=== PATIENT | male | born 1960 | race Caucasian/White ===

== ENCOUNTER 2016-12-21 16:48 | Observation (INO) | payer MEDICAID ==
[~2016-12-21] VITALS: Ht 180.3 cm; Wt 75.7 kg
[2016-12-21] MEDS ORDERED: ASPIRIN 81 MG CHEW TAB ONE (16:54)
[2016-12-21] MEDS ORDERED: DUONEB INH ONE (17:48)
[2016-12-21] MEDS ORDERED: NITROGLYCERIN SL 0.4 MG TAB SL ONE (17:49)
[2016-12-21] MEDS ORDERED: DILAUDID 1 MG/ML AMP ONE (18:01)
[2016-12-21] MEDS ORDERED: ONDANSETRON 4 MG VIAL ONE (18:01)
[2016-12-21] MEDS ORDERED: NITROGLYCERIN 2% OINT 1 INCH PKT TOPICAL ONE (18:01)
[2016-12-21] MEDS ORDERED: TRAMADOL 50 MG TAB PO PRN (18:45)
[2016-12-21] MEDS ORDERED: NITROGLYCERIN 50 MG/250 ML IV PRN (18:45)
[2016-12-21] MEDS ORDERED: ACETAMINOPHEN 325 MG TAB PO PRN (18:45)
[2016-12-21] MEDS ORDERED: SALINE FLUSH 10 ML FLUSH PRN (18:45)
[2016-12-21] MEDS ORDERED: ASPIRIN 81 MG CHEW TAB PO ONE (18:45)
[2016-12-21] MEDS ORDERED: DOCUSATE SOD 100 MG CAP PO PRN (18:45)
[2016-12-21] MEDS ORDERED: ONDANSETRON 4 MG VIAL IV PRN (18:45)
[2016-12-21] MEDS ORDERED: TEMAZEPAM 15 MG CAP PO PRN (18:45)
[2016-12-21] MEDS ORDERED: NITROGLYCERIN SL 0.4 MG TAB SL PRN (18:45)
[2016-12-21] MEDS ORDERED: SODIUM CHLORIDE 0.9% FLUSH BAG 500 ML IV PRN (18:45)
[2016-12-21 19:46] VITALS: BP_SYST 106; RESP 18; TEMP 97.4
[2016-12-21] MEDS: MORPHINE 2 MG/ML SYR IV PRN (19:56)
[2016-12-21] MEDS ORDERED: NEB-ALBUTEROL 2.5 MG/3 ML INH PRN (20:00)
[2016-12-21] MEDS ORDERED: ACETAMIN/BUTALB/CAFF PO PRN (20:00)
[2016-12-21] MEDS ORDERED: Atorvastatin 40 MG TAB PO SCH (21:00)
[2016-12-21] MEDS ORDERED: ZOLPIDEM 5 MG TAB PO SCH (21:00)
[2016-12-21] MEDS: SALINE FLUSH 10 ML FLUSH SCH (21:50)
[2016-12-21] MEDS: LORAZEPAM 0.5 MG TAB PO PRN (21:50)
[2016-12-21] MEDS: FLUTICASONE 0.05% NA BTL NARE EACH SCH (21:50)
[2016-12-21] MEDS: GABAPENTIN 400 MG CAP PO SCH (21:52)
[2016-12-21 23:02] VITALS: BP_SYST 111; RESP 18
[2016-12-22] VITALS (12 sets, daily range): BP systolic 108–132; RESP 12–20; TEMP 97.3–98; Ht 180.3 cm; Wt 75.7 kg
[2016-12-22] MEDS: DUONEB INH PRN ×4 (00:22→10:49)
[2016-12-22] MEDS: Hydrocodone/APAP 10/325 MG TAB PO PRN ×3 (02:09→14:34)
[2016-12-22] MEDS: MORPHINE 2 MG/ML SYR IV PRN ×4 (02:38→08:36)
[2016-12-22] MEDS: LORAZEPAM 0.5 MG TAB PO PRN (04:44)
[2016-12-22] MEDS ORDERED: MDI-SPIRIVA 5 DOSES INH SCH (07:00)
[2016-12-22] MEDS ORDERED: DIAZEPAM 5 MG TAB PO ONE (07:40)
[2016-12-22] MEDS ORDERED: ASPIRIN EC 81 MG TAB PO SCH (08:00)
[2016-12-22] MEDS: GABAPENTIN 400 MG CAP PO SCH ×2 (08:35→13:15)
[2016-12-22] MEDS: FLUTICASONE 0.05% NA BTL NARE EACH SCH (08:35)
[2016-12-22] MEDS: SALINE FLUSH 10 ML FLUSH SCH (08:36)
[2016-12-22] MEDS ORDERED: ATENOLOL 25 MG TAB PO SCH (09:00)
[2016-12-22] MEDS ORDERED: DULoxetine 30 MG CAP PO SCH (09:00)
[2016-12-22] MEDS ORDERED: MORPHINE 2 MG/ML SYR IV ONE (09:45)
[2016-12-22] MEDS ORDERED: ONDANSETRON 4 MG VIAL IV PRN (09:45)
[2016-12-22] MEDS ORDERED: LIDOCAINE 2% 20 ML SUBQ ONE (09:45)
[2016-12-22] MEDS ORDERED: MIDAZOLAM 2 MG/2 ML INJ IV PRN (09:45)
[2016-12-22] MEDS ORDERED: ATROPINE 1 MG/10 ML SYRINGE IV PRN (09:45)
[2016-12-22] MEDS ORDERED: SALINE FLUSH 10 ML FLUSH PRN (09:45)
[2016-12-22] MEDS ORDERED: DEXTROSE 5% SALINE 0.45% 1,000 ML IV SCH (09:45)
[2016-12-22] MEDS ORDERED: MIDAZOLAM 2 MG/2 ML INJ IV ONE (09:45)
[2016-12-22] MEDS ORDERED: LORAZEPAM 0.5 MG TAB PO PRN (10:45)
[2016-12-22] MEDS ORDERED: FAMOTIDINE 20 MG INJ IV ONE (10:50)
[2016-12-22] MEDS ORDERED: KETOROLAC 30 MG/ML VIAL IV ONE (10:50)
[2016-12-22] MEDS ORDERED: SALINE FLUSH 10 ML FLUSH SCH (20:00)
[2016-12-22] MEDS ORDERED: FAMOTIDINE 20 MG TAB PO SCH (21:00)
[2016-12-22] MEDS ORDERED: MIDAZOLAM 2 MG/2 ML INJ ONE (21:58)
[2016-12-22] MEDS ORDERED: LIDOCAINE/EPI 2% MPF 20 ML ONE (21:58)
[2016-12-22] MEDS ORDERED: FENTANYL 100 MCG/2 ML AMP ONE (21:58)
[2016-12-22] MEDS ORDERED: PROMETHAZINE 25 MG SUPP RECTAL ONE (21:58)
[2016-12-22] MEDS ORDERED: MEPERIDINE 25 MG/ML ONE (21:58)
[2016-12-23] MEDS ORDERED: SODIUM CHLORIDE 0.9% FLUSH BAG 500 ML IV SCH (06:00)
== END 2016-12-22 09:50 | disposition home or self-care (01) ==
LOC: ENRESERVTM → ENRESERVDT → ER 16:48 → ENPENDDIS 18:23 → EMR 18:23 → PCU2 19:01
PROVIDERS: ADMIT Internal Medicine Cardiovascular Disease; ATTEND Internal Medicine Cardiovascular Disease
DX: I25.110 Atherosclerotic heart disease of native coronary artery with unstable angina pectoris (principal); I11.0 Hypertensive heart disease with heart failure; I25.82 Chronic total occlusion of coronary artery; I50.9 Heart failure, unspecified; F17.210 Nicotine dependence, cigarettes, uncomplicated; Z95.5 Presence of coronary angioplasty implant and graft; E78.5 Hyperlipidemia, unspecified; F41.9 Anxiety disorder, unspecified; I25.2 Old myocardial infarction; J44.9 Chronic obstructive pulmonary disease, unspecified; Z79.51 Long term (current) use of inhaled steroids; Z79.82 Long term (current) use of aspirin
CPT/HCPCS: 36415; 71010; 80053; 80061; 82550; 82553; 83735; 84484; 85025; 85610; 85730; 93005; 93458; 94640; 94799; 96374; 96375